=== PATIENT | male | born 1960 | race Caucasian/White ===

== ENCOUNTER 2018-06-26 09:20 | Emergency (ER) | payer BC ==
[2018-06-26 09:25] VITALS: BMI 28.5
[2018-06-26 09:28] VITALS: TEMP 97.3
--- NOTE | 2018-06-26 09:40 | PDOC ---
History of Present Illness - General Chief Complaint: Pain, Acute Stated Complaint: LEFT SHOULDER PAIN Time Seen by Provider: 06/26/18 09:23 History Source: Patient Exam Limitations: No Limitations - History of Present Illness Initial Comments: 06/26/18 09:40 58y M no pmhx presenst with L shoulder/arm pain. The pts states he was walking his dog and slipped on black ice. He fell on his L arm/shouolder. No head injury /trauma, neck pain, back pain. Pt states his L arm/shouldr hurts and that it is 'flopping around'. notse some tingling to his hands. Pt denies any loc, n/v, cp, sob, abd pain, flank pain, hip pain. pt took a motrin early this morning for headache. no other meds taken pmd: erich sharp Past History - Past Medical History Allergies/Adverse Reactions: Allergies Allergy/AdvReac Type Severity Reaction Status Date / Time No Known Drug Allergies Allergy Verified 06/26/18 09:21 Home Medications: Ambulatory Orders Tramadol HCl 50 mg PO QID PRN #12 tablet MDD 4 06/26/18 Anemia: No Asthma: No Cancer: Yes (BASAL CELL FACE & ABD) Cardiac Disorders: No CVA: No COPD: No CHF: No Dementia: No Diabetes: No GI Disorders: No Disorders: No HTN: No Hypercholesterolemia: No Liver Disease: No Seizures: No Thyroid Disease: No - Surgical History Abdominal Surgery: Yes (BASAL CELL REMOVED 2009) Appendectomy: No Cardiac Surgery: No Cholecystectomy: No Lung Surgery: No Neurologic Surgery: No Orthopedic Surgery: No - Suicide/Smoking/Psychosocial Hx Smoking History: Never smoked Have you smoked in the past 12 months: No Hx Alcohol Use: Yes Drug/Substance Use Hx: No Substance Use Type: Alcohol Hx Substance Use Treatment: No Review of Systems - Review of Systems Able to Perform ROS?: Yes Comments:: 06/26/18 09:44 Constitutional - no reported Fever, Chills, HEENT: no reported vision changes, sore throat Cardiac: no reported chest pain, palpitations, light headedness Abd/GI: no reported abd pain, nausea, vomiting, Musculskelatal - +L arm pain, no reported back pain, joint swelling skin - no reported bruising, erythema, rash neurological: +tingling no reported headache, numbness, focal weakness, ataxia, hematologic: no reported easy bruising, easy bleeding *Physical Exam - Vital Signs Last Vital Signs Temp Pulse Resp BP Pulse Ox 97.3 F L 68 16 133/84 97 06/26/18 09:21 06/26/18 09:21 06/26/18 09:21 06/26/18 09:21 06/26/18 09:21 - Physical Exam Comments: 06/26/18 09:46 GENERAL: The patient is awake, alert, and fully oriented, Nontoxic - in no acute distress. HEAD: Normocephalic, atraumatic. EYES: extraocular movements intact, sclera anicteric, conjunctiva clear. ENT: Normal voice, Moist mucous membranes. NECK: Normal range of motion, supple ABDOMEN: Soft, nontender, No guarding, no rebound. No CVA tenderness EXTREMITIES: +defomrity palaple on L humerus, no ttp L shoulder, L elbow/hand, able to flex/enxtend elbow ithout pain to elbow. +laborer vineyard strength symmetric, wrist flexion/exntesion intact, intact 'a-ok sign', 'thumbs up', sensation in hands/forearm symmetric and intact. BACK: no focal tendeness to cervical/thoracic/lumbar spine PSYCH: Normal mood, normal affect. SKIN: Warm, Dry, normal turgor, ED Treatment Course - RADIOLOGY Radiology Studies Ordered: Category Date Time Status ELBOW-LEFT [RAD] Stat Radiology 06/26/18 09:38 Ordered HUMERUS-LEFT [RAD] Stat Radiology 06/26/18 09:38 Ordered SHOULDER-LEFT [RAD] Stat Radiology 06/26/18 09:38 Ordered Medical Decision Making - Medical Decision Making 06/26/18 09:47 suspect humeral shaft fx will obtain xrays no neurovascular deficits pt declines pain meds at this point 06/26/18 10:46 xray cw midshaft humerus fx n/v intact will dw Ortho *DC/Admit/Observation/Transfer Diagnosis at time of Disposition: Fracture of humeral shaft, left, closed Qualifiers: Encounter type: initial encounter Fracture morphology: transverse Fracture alignment: displaced Qualified Code(s): S42.322A - Displaced transverse fracture of shaft of humerus, left arm, initial encounter for closed fracture - Discharge Dispostion Disposition: HOME Condition at time of disposition: Improved Decision to Admit order: No - Prescriptions Prescriptions: Tramadol HCl 50 mg PO QID PRN #12 tablet MDD 4 PRN Reason: Pain - Referrals Referrals: Jean Byrne Jr [Non Staff, Medical] - Claudio Randolph DO [Staff Physician] - - Patient Instructions Printed Discharge Instructions: DI for Humeral Fracture Additional Instructions: Return to the emergency department immediately with ANY new, persistent or worsening symptoms including any increased pain, numbness, tingling, weakness or any other concerns. Take Motrin and Tylenol as needed for the pain if you need more pain control you may take the tramadol. Not drive if you're taking the tramadol as it may make you sleepy. You MUST call and follow up with your orthopedic doctor within 1-2 days for further evaluation of your symptoms. Results were discussed with you. Please make sure your doctor reviews the results of your emergency evaluation. Print Language: WOLOF - Post Discharge Activity
[2018-06-26] MEDS ORDERED: ACETAMINOPHEN 325 MG TABLET (FP) PO ONE (10:46)
[2018-06-26] MEDS ORDERED: ACETAMINOPHEN 325 MG TABLET (FP) ONE (11:01)
[2018-06-26] MEDS ORDERED: traMADol HCL 50 MG TABLET PO ONE (11:53)
[2018-06-26] MEDS ORDERED: traMADol HCL 50 MG TABLET ONE (11:55)
[2018-06-26] MEDS ORDERED: morphine CARPU-JECT 2 MG/1 ML DISP.SYRIN IVPUSH ONE ×2 (12:24→12:32)
[2018-06-26] MEDS ORDERED: morphine SULFATE 4 MG/ML VIAL ONE ×2 (12:29→12:32)
[2018-06-26 13:11] VITALS: BP 132/82; PULSE 58
--- NOTE | 2018-06-26 16:29 | PN ---
Progress Note (short form) - Note Progress Note: ORTHOPEDIC SURGERY CONSULTATION NOTE The patient was earlier evaluated today at 1230 PM. CHIEF COMPLAINT Left arm pain HISTORY OF PRESENT ILLNESS Ramirez is a 58 year old right hand dominant male who presents to [facility] after a mechanical fall while walking his dog. The orthopedic service was consulted for a left humeral shaft fracture. The patient notes sever sharp pain to the left arm. Denies any other injuries. Denies numbness, tingling or other constitutional complaints. Denies tobacco use or drug use. Endorses alcohol abuse. PAST MEDICAL HISTORY Basal cell carcinoma SURGICAL HISTORY Removal of basal cell carcinoma FAMILY HISTORY Noncontributory SOCIAL HISTORY Smoking history Never smoked Hx Alcohol Use Yes MEDICATIONS Medication Instructions Recorded Tramadol HCl 50 mg PO QID PRN #12 tablet MDD 4 06/26/18 ALLERGIES Allergies Allergy/AdvReac Type Severity Reaction Status Date / Time No Known Drug Allergies Allergy Verified 06/26/18 09:21 REVIEW OF SYMPTOMS A twelve-point review of systems was performed and was negative except as noted in HPI. PHYSICAL EXAM Constitutional: Alert and oriented to person, place, and time. Appears well- developed and well-nourished. No acute distress, appropriate mood and affect. HEENT: Normocephalic, atraumatic Cardiovascular: Regular rate and rhythm, extremities warm, no cyanosis Pulmonary: Breathing comfortably, normal air movement, no audible wheezing Left Upper Extremity: Obvious deformity with skin tenting. Skin warm, dry, and intact. Tender to palpation at the humerus; nontender throughout rest of extremity. M/R/U/MSK/AX motor intact; SILT distally; 2+ radial pulses; Cap refill brisk. Right Upper Extremity: No tenderness to palpation. Full passive and active ROM, free from pain. Right Lower Extremity: No tenderness to palpation. Full passive and active ROM, free from pain. Left Lower Extremity: No tenderness to palpation. Full passive and active ROM, free from pain. VITAL SIGNS Period Temp Pulse Resp BP Sys/Yoder Pulse Ox Last 24 Hr 97.3 F 58-68 16-18 132-133/82-84 97-99 INPUT/OUTPUT No data available for review LAB DATA No data available for review IMAGING I personally reviewed all radiographs. They demonstrate a transverse fracture of the mid-humerus with mild angulation. There are no blastic or lytic lesions noted ASSESSMENT AND PLAN Ramirez Peña is a 58 year old right hand dominant male presenting status post fall with a left sided humeral shaft fracture. We have reviewed the imaging and clinical findings in detail, as well as their potential implications. Interestingly, his fracture was in an relatively acceptable alignment during his initial radiographs; however, upon my arrival to the emergency department, the fracture was clinically displaced. The proximal fragment was abducted due to the deforming force of the deltoid, and there was moderate tenting of the skin. After appropriate informed discussion, a closed reduction was performed and the patient was placed in a well-padded splint coaptation splint. The patient was neurovascularly intact after the reduction and splint application. In particular, he was able to extend his wrist and fingers. After reduction, the fracture was angulated in 15 degrees of varus and 10 degrees in the sagittal plane. There was 100% displacement of the fracture ends. Due to the transverse nature of the fracture, it was explained to Latrell that there is a higher risk of nonunion with the current amount to displacement. We discussed attempting re-reduction versus waiting a few days and re-imaging him in a fracture brace. He elected to be re-imaged after placing a fracture brace, and surgical versus nonsurgical options can be discussed again at that time. The patient does have an orthopedist that his family has used in the past. He can follow up with them, or he is more than welcome to follow up with us. Patient was instructed regarding: - non weight bearing on fractured side - signs and symptoms of compartment syndrome and need to seek immediate care should new onset numbness, tingling, or significantly increasing pain occur. - keeping the splint clean and dry - avoiding NSAID medications PROCEDURE NOTE FOR CLOSED REDUCTION OF LEFT HUMERAL SHAFT FRACTURE The splinting materials for this procedure were provided by the hospital. After informed consent, the correct extremity was identified. The arm was manipulated until the arm was straight. A well padded coaptation splint with a valgus mold was then applied. The patient was neurovascularly intact after the reduction and splint application. All questions were answered. Thank you for involving our team in the care of this patient. Please have patient follow up in our office early next week . Larry Richardson DO Department of Orthopedic Surgery
== END 2018-06-26 13:59 | disposition home or self-care (01) ==
LOC: FER 09:20
PROC: 3E033NZ Introduction of Analgesics, Hypnotics, Sedatives into Peripheral Vein, Percutaneous Approach (ICD-10-PCS; principal; 2018-06-26)
DX: S42.322A Displaced transverse fracture of shaft of humerus, left arm, initial encounter for closed fracture (principal); W00.0XXA Fall on same level due to ice and snow, initial encounter; Y93.89 Activity, other specified; Y92.89 Other specified places as the place of occurrence of the external cause
CPT/HCPCS: 73030-TC-LT-FY; 73060-TC-LT-FY; 73070-TC-LT-FY; 99282-25